=== PATIENT | male | born 1960 | race Caucasian/White ===

== ENCOUNTER 2021-12-10 13:13 | Inpatient (IN) ==
[2021-12-10] MEDS ORDERED: Ipratropium/Albuterol Neb 3 ML IH ONE (14:25)
[2021-12-10] MEDS ORDERED: 0.9 % Sodium Chloride 1,000 ML IVC ONE (14:25)
[2021-12-10] MEDS ORDERED: methylPREDNISolone 125 MG/2 ML VIAL IVP ONE (14:25)
[2021-12-10 14:52] LABS: Basophils # 0.1 K/mcL (0.0-0.2); Basophils % 0.3 %; Eosinophils % 0.1 %; Hematocrit 45.1 % (37.5-50.1); Hemoglobin 15.5 g/dL (12.9-16.9); Immature Granulocytes % 0.9 % (0-4); Lymphocytes # 1.5 K/mcL (0.6-4.6); Mean Corpuscular HGB Conc 34.4 g/dL (31.6-35.5); Mean Corpuscular Volume 98.9 fL (83.0-100.0); Mean Platelet Volume 11.4 fL (9.4-12.4); Monocytes # 1.1 K/mcL (0.0-1.3); Monocytes % 6.5 %; Platelet Count 190 K/mcL (140-400); Red Blood Count 4.56 M/mcL (4.19-5.50); Red Cell Distribution Width 13.2 % (11.5-14.5); Segmented Neutrophils % 83.2 %; White Blood Count 16.4 K/mcL (4.3-11.1)
[2021-12-10 14:58] LABS: Neutrophils # 13.6 K/mcL (1.6-8.9)
[2021-12-10 15:00] LABS: INR 1.4; Prothrombin Time 15.1 Seconds (9.4-12.1)
[2021-12-10 15:02] LABS: Activated Partial Thrombo Time 34.7 Seconds (26.0-36.0)
[2021-12-10 15:07] LABS: Alanine Aminotransferase 30 Units/L (7-52); Albumin/Globulin Ratio 0.6 (1.1-2.2); Alkaline Phosphatase 63 Units/L (34-104); Aspartate Amino Transferase 39 Units/L (13-39); BUN/Creatinine Ratio 20 (6-26); Bilirubin,Direct 0.5 mg/dL (0.0-0.2); Bilirubin,Indirect 0.7 mg/dL (0.0-1.0); Bilirubin,Total 1.2 mg/dL (0.3-1.0); Blood Urea Nitrogen 12 mg/dL (6-20); Calcium 8.7 mg/dL (8.6-10.3); Carbon Dioxide 21 mEq/L (23-29); Chloride 102 mEq/L (98-107); Globulin 5.2 g/dL (2.4-3.5); Glucose 114 mg/dL (70-105); Osmolality,Calculated 275 (280-300); Potassium 3.5 mEq/L (3.5-5.1); Sodium 132 mEq/L (136-145); Total Protein 8.2 g/dL (6.4-8.9); eGFR For African Americans > 60 (> 60); eGFR For Non-African Americans > 60 (> 60)
[2021-12-10] MEDS ORDERED: Azithromycin 500 MG in 0.9 % Sodium Chloride 250 ML IVPB ONE (16:05)
[2021-12-10] MEDS ORDERED: Acetaminophen 325 MG TABLET PO PRN (16:53)
[2021-12-10] MEDS ORDERED: MOM Conc 10 ML UD.LIQ PO PRN (16:53)
[2021-12-10] MEDS ORDERED: Mag Hydrox/Al Hydrox/Simeth 30 ML UDC PO PRN (16:53)
[2021-12-10] MEDS ORDERED: Naloxone 0.4 MG/ML INJ IVP PRN (16:53)
[2021-12-10] MEDS ORDERED: Ondansetron 4 MG/2 ML VIAL IVP PRN (16:53)
[2021-12-10] MEDS ORDERED: Benzonatate 100 MG CAPSULE PO PRN (17:01)
[2021-12-10] MEDS ORDERED: cefTRIAXone 2,000 MG in 0.9 % Sodium Chloride 20 ML IVP SCH (18:00)
[2021-12-10] MEDS: 0.9 % Sodium Chloride 1,000 ML IVC SCH (18:23)
[2021-12-10] MEDS: MethylPREDNISolone 40 MG/ML VIAL IVP SCH (18:24)
[2021-12-10] MEDS: Azithromycin 500 MG in 0.9 % Sodium Chloride 250 ML IVPB SCH (18:24)
[2021-12-10] MEDS: cefTRIAXone 2,000 MG in 0.9 % Sodium Chloride Mini Bag 100 ML IVPB SCH (20:26)
[2021-12-10] MEDS ORDERED: Melatonin 3 MG TABLET PO PRN (21:00)
[2021-12-10] MEDS: Budesonide/Formoterol 160/4.5 1 PUFF INH IH SCH (21:15)
[2021-12-10] MEDS: Ipratropium Neb 0.5 MG NEBULIZER IH SCH (21:15)
[2021-12-10] MEDS: Levalbuterol Neb 1.25 MG/3 ML IH SCH (21:15)
[2021-12-11] MEDS: MethylPREDNISolone 40 MG/ML VIAL IVP SCH ×5 (00:14→23:41)
[2021-12-11] MEDS: Levalbuterol Neb 1.25 MG/3 ML IH SCH ×4 (04:07→22:39)
[2021-12-11] MEDS: Ipratropium Neb 0.5 MG NEBULIZER IH SCH ×4 (04:07→22:39)
[2021-12-11 06:41] LABS: Basophils % 0.1 %; Hematocrit 43.6 % (37.5-50.1); Hemoglobin 14.7 g/dL (12.9-16.9); Immature Granulocytes % 0.8 % (0-4); Lymphocytes % 5.7 %; Mean Corpuscular HGB Conc 33.7 g/dL (31.6-35.5); Mean Corpuscular Hemoglobin 33.3 pg (28.0-33.3); Mean Corpuscular Volume 98.9 fL (83.0-100.0); Mean Platelet Volume 11.6 fL (9.4-12.4); Monocytes # 0.7 K/mcL (0.0-1.3); Monocytes % 3.9 %; Platelet Count 176 K/mcL (140-400); Red Blood Count 4.41 M/mcL (4.19-5.50); Red Cell Distribution Width 12.9 % (11.5-14.5); Segmented Neutrophils % 89.5 %; White Blood Count 17.1 K/mcL (4.3-11.1)
[2021-12-11 06:46] LABS: Neutrophils # 15.3 K/mcL (1.6-8.9)
[2021-12-11] MEDS: 0.9 % Sodium Chloride 1,000 ML IVC SCH (06:59)
[2021-12-11 07:00] LABS: BUN/Creatinine Ratio 24 (6-26); Blood Urea Nitrogen 13 mg/dL (6-20); Calcium 8.5 mg/dL (8.6-10.3); Carbon Dioxide 21 mEq/L (23-29); Chloride 106 mEq/L (98-107); Glucose 183 mg/dL (70-105); Osmolality,Calculated 287 (280-300); Potassium 3.2 mEq/L (3.5-5.1); Sodium 136 mEq/L (136-145); eGFR For African Americans > 60 (> 60); eGFR For Non-African Americans > 60 (> 60)
[2021-12-11] MEDS: *HR* Enoxaparin 40 MG/0.4 ML SYRINGE SQ SCH (07:01)
[2021-12-11] MEDS: cefTRIAXone 2,000 MG in 0.9 % Sodium Chloride Mini Bag 100 ML IVPB SCH (08:39)
[2021-12-11] MEDS ORDERED: cefTRIAXone 2,000 MG in 0.9 % Sodium Chloride Mini Bag 100 ML IVPB SCH (09:00)
[2021-12-11 10:17] LABS: Adenovirus Not Detected (Not Detect); Bordetella Pertussis Not Detected (Not Detect); Chlamydophila pneumoniae Not Detected (Not Detect); Coronavirus 229E Not Detected (Not Detect); Coronavirus HKU1 Not Detected (Not Detect); Coronavirus NL63 Not Detected (Not Detect); Coronavirus OC43 Not Detected (Not Detect); Human Metapneumovirus Not Detected (Not Detect); Human Rhinovirus/Enterovirus Not Detected (Not Detect); Influenza A Subtype 2009 H1 Not Detected (Not Detect); Influenza B Not Detected (Not Detect); Mycoplasma pneumoniae Not Detected (Not Detect); Parainfluenza Virus 1 Not Detected (Not Detect); Parainfluenza Virus 2 Not Detected (Not Detect); Parainfluenza Virus 3 Not Detected (Not Detect); Parainfluenza Virus 4 Not Detected (Not Detect); Respiratory Syncytial Virus Not Detected (Not Detect); SARS-CoV-2 Not Detected (Not Detect)
[2021-12-11] MEDS ORDERED: Perflutren Lipid Microsphere 1.3 ML in 0.9 % Sodium Chloride 8.7 ML IVP PRN (10:34)
[2021-12-11] MEDS: Budesonide/Formoterol 160/4.5 1 PUFF INH IH SCH ×2 (11:03→22:40)
[2021-12-11] MEDS ORDERED: Furosemide 40 MG/4 ML VIAL IVP ONE (13:20)
[2021-12-11] MEDS: Azithromycin 500 MG in 0.9 % Sodium Chloride 250 ML IVPB SCH (18:23)
[2021-12-12] MEDS: Levalbuterol Neb 1.25 MG/3 ML IH SCH ×4 (03:54→21:10)
[2021-12-12] MEDS: Ipratropium Neb 0.5 MG NEBULIZER IH SCH ×4 (03:54→21:10)
[2021-12-12] MEDS: *HR* Enoxaparin 40 MG/0.4 ML SYRINGE SQ SCH (05:58)
[2021-12-12] MEDS: MethylPREDNISolone 40 MG/ML VIAL IVP SCH ×2 (05:58→18:34)
[2021-12-12 07:02] LABS: Hematocrit 43.4 % (37.5-50.1); Hemoglobin 14.5 g/dL (12.9-16.9); Mean Corpuscular HGB Conc 33.4 g/dL (31.6-35.5); Mean Corpuscular Hemoglobin 33.2 pg (28.0-33.3); Mean Corpuscular Volume 99.3 fL (83.0-100.0); Mean Platelet Volume 11.7 fL (9.4-12.4); Platelet Count 211 K/mcL (140-400); Red Blood Count 4.37 M/mcL (4.19-5.50); Red Cell Distribution Width 12.9 % (11.5-14.5); White Blood Count 23.2 K/mcL (4.3-11.1)
[2021-12-12 07:33] LABS: BUN/Creatinine Ratio 27 (6-26); Blood Urea Nitrogen 17 mg/dL (6-20); Calcium 8.8 mg/dL (8.6-10.3); Carbon Dioxide 22 mEq/L (23-29); Chloride 104 mEq/L (98-107); Glucose 196 mg/dL (70-105); Osmolality,Calculated 293 (280-300); Potassium 3.1 mEq/L (3.5-5.1); Sodium 138 mEq/L (136-145); eGFR For African Americans > 60 (> 60); eGFR For Non-African Americans > 60 (> 60)
[2021-12-12] MEDS: cefTRIAXone 2,000 MG in 0.9 % Sodium Chloride Mini Bag 100 ML IVPB SCH (08:30)
[2021-12-12] MEDS: Budesonide/Formoterol 160/4.5 1 PUFF INH IH SCH ×2 (09:17→21:10)
[2021-12-12] MEDS: *HR* LORazepam 0.5 MG TABLET PO PRN ×2 (10:34→18:34)
[2021-12-12] MEDS ORDERED: MethylPREDNISolone 40 MG/ML VIAL IVP SCH (14:00)
[2021-12-12] MEDS: Furosemide 20 MG/2 ML VIAL IVP SCH ×2 (14:14→21:06)
[2021-12-12] MEDS ORDERED: Furosemide 20 MG/2 ML VIAL IVP ONE (14:14)
[2021-12-12] MEDS ORDERED: *HR* LORazepam 0.5 MG TABLET PO PRN (18:30)
[2021-12-12] MEDS: Azithromycin 500 MG in 0.9 % Sodium Chloride 250 ML IVPB SCH (18:34)
[2021-12-13] MEDS ORDERED: *HR* LORazepam 2 MG/ML VIAL IVP ONE (00:52)
[2021-12-13] MEDS ORDERED: Nicotine 14 MG PATCH.TD24 TD SCH (01:29)
[2021-12-13] MEDS ORDERED: Haloperidol Lactate 5 MG/ML VIAL IVP ONE (02:11)
[2021-12-13 02:51] LABS: ABG Base Excess 1 mEq/L (-2 to 3); ABG HCO3 25 mEq/L (21-27); ABG Oxygen Saturation 94 % (95-98); ABG PCO2 35 mmHg (35-45); ABG PH 7.46 pH Units (7.32-7.45); ABG PO2 68 mmHg (85-104); ABG TCO2 26 mEq/L (20-26); Blood Gas Pressure Support 7 cm H2O
[2021-12-13] MEDS: Ipratropium Neb 0.5 MG NEBULIZER IH SCH ×4 (03:08→22:23)
[2021-12-13] MEDS: Levalbuterol Neb 1.25 MG/3 ML IH SCH ×4 (03:08→22:23)
[2021-12-13] MEDS: *HR* Enoxaparin 40 MG/0.4 ML SYRINGE SQ SCH (05:33)
[2021-12-13] MEDS: MethylPREDNISolone 40 MG/ML VIAL IVP SCH (05:37)
[2021-12-13 07:57] LABS: Hematocrit 41.6 % (37.5-50.1); Hemoglobin 13.9 g/dL (12.9-16.9); Mean Corpuscular HGB Conc 33.4 g/dL (31.6-35.5); Mean Corpuscular Hemoglobin 33.3 pg (28.0-33.3); Mean Corpuscular Volume 99.5 fL (83.0-100.0); Mean Platelet Volume 11.7 fL (9.4-12.4); Platelet Count 190 K/mcL (140-400); Red Blood Count 4.18 M/mcL (4.19-5.50); Red Cell Distribution Width 13.1 % (11.5-14.5); White Blood Count 15.5 K/mcL (4.3-11.1)
[2021-12-13] MEDS: Budesonide/Formoterol 160/4.5 1 PUFF INH IH SCH ×2 (09:06→22:23)
[2021-12-13 09:25] LABS: BUN/Creatinine Ratio 38 (6-26); Blood Urea Nitrogen 20 mg/dL (6-20); Calcium 8.6 mg/dL (8.6-10.3); Carbon Dioxide 30 mEq/L (23-29); Chloride 104 mEq/L (98-107); Glucose 158 mg/dL (70-105); Magnesium 2.3 mg/dL (1.6-2.6); Osmolality,Calculated 290 (280-300); Potassium 3.9 mEq/L (3.5-5.1); Sodium 137 mEq/L (136-145); eGFR For African Americans > 60 (> 60); eGFR For Non-African Americans > 60 (> 60)
[2021-12-13] MEDS: Aspirin Enteric Coated 81 MG Tablet PO SCH (09:38)
[2021-12-13] MEDS: cefTRIAXone 2,000 MG in 0.9 % Sodium Chloride Mini Bag 100 ML IVPB SCH (09:40)
[2021-12-13] MEDS: Furosemide 20 MG/2 ML VIAL IVP SCH (09:40)
[2021-12-13] MEDS: Furosemide 20 MG TABLET PO SCH (16:35)
[2021-12-13] MEDS: predniSONE 20 MG TABLET PO SCH (16:35)
[2021-12-13] MEDS: Azithromycin 500 MG in 0.9 % Sodium Chloride 250 ML IVPB SCH (16:35)
[2021-12-14] MEDS ORDERED: Nicotine 14 MG PATCH.TD24 TD SCH (00:15)
[2021-12-14] MEDS: Ipratropium Neb 0.5 MG NEBULIZER IH SCH ×2 (04:17→09:07)
[2021-12-14] MEDS: Levalbuterol Neb 1.25 MG/3 ML IH SCH ×2 (04:17→09:07)
[2021-12-14] MEDS: *HR* Enoxaparin 40 MG/0.4 ML SYRINGE SQ SCH (06:02)
[2021-12-14 08:00] LABS: Basophils % 0.2 %; Eosinophils # 0.1 K/mcL (0.0-0.6); Eosinophils % 0.3 %; Hematocrit 44.6 % (37.5-50.1); Hemoglobin 15.1 g/dL (12.9-16.9); Lymphocytes # 2.4 K/mcL (0.6-4.6); Lymphocytes % 13.7 %; Mean Corpuscular HGB Conc 33.9 g/dL (31.6-35.5); Mean Corpuscular Hemoglobin 33.3 pg (28.0-33.3); Mean Corpuscular Volume 98.2 fL (83.0-100.0); Mean Platelet Volume 11.5 fL (9.4-12.4); Monocytes # 0.5 K/mcL (0.0-1.3); Monocytes % 2.6 %; Neutrophils # 14.6 K/mcL (1.6-8.9); Platelet Count 201 K/mcL (140-400); Red Blood Count 4.54 M/mcL (4.19-5.50); Red Cell Distribution Width 12.6 % (11.5-14.5); Segmented Neutrophils % 82.2 %; White Blood Count 17.7 K/mcL (4.3-11.1)
[2021-12-14] MEDS ORDERED: Isovue-370 500 ML BOTTLE IVP ONE (08:22)
[2021-12-14 08:47] LABS: BUN/Creatinine Ratio 35 (6-26); Blood Urea Nitrogen 19 mg/dL (6-20); Calcium 8.6 mg/dL (8.6-10.3); Carbon Dioxide 28 mEq/L (23-29); Chloride 101 mEq/L (98-107); Glucose 111 mg/dL (70-105); Osmolality,Calculated 283 (280-300); Potassium 3.3 mEq/L (3.5-5.1); Sodium 135 mEq/L (136-145); eGFR For African Americans > 60 (> 60); eGFR For Non-African Americans > 60 (> 60)
[2021-12-14] MEDS: Furosemide 20 MG TABLET PO SCH (09:06)
[2021-12-14] MEDS: Aspirin Enteric Coated 81 MG Tablet PO SCH (09:06)
[2021-12-14] MEDS: predniSONE 20 MG TABLET PO SCH (09:07)
[2021-12-14] MEDS: cefTRIAXone 2,000 MG in 0.9 % Sodium Chloride Mini Bag 100 ML IVPB SCH (09:08)
[2021-12-14] MEDS: Budesonide/Formoterol 160/4.5 1 PUFF INH IH SCH (09:08)
[2021-12-14 12:18] VITALS: BP 149/92; PULSE 93; RESP 18; TEMP 98.8; O2SAT 91
[2021-12-14] MEDS ORDERED: Vancomycin 1,500 MG/265 ML IV.SOLN IVPB SCH (22:00)
== END 2021-12-14 13:05 | disposition short-term general hospital (02) | DRG 871 ==
LOC: INPPIK 13:13 → EMEROOPIK 13:13 → INPPIK 17:32
PROVIDERS: ADMIT Family Medicine; ATTEND Family Medicine